=== PATIENT | female | born 1940 | race Caucasian/White ===

== ENCOUNTER 2017-01-14 11:00 | Day surgery (SDC) | payer MEDICARE, OTHER ==
[2017-01-14 10:19] VITALS: RESP 18; TEMP 97.6
[2017-01-14] MEDS ORDERED: LIDOCAINE 2% INJ 20 MG/ML SQ ONE (11:02)
[2017-01-14] MEDS ORDERED: IOHEXOL 350 MG/ML 50ML BOTTLE INJ ONE (11:13)
[2017-01-14 11:58] VITALS: BP 129/83; PULSE 62
--- NOTE | 2017-01-14 13:02 | IR ---
EXAMINATION TYPE: IR cvc insert >=5 years and left upper extremity venogram DATE OF EXAM: 01/14/2017 COMPARISON: NONE CLINICAL HISTORY: Urinary tract infection Needs long-term intravenous access for antibiotics. PROCEDURE: After informed consent, the skin overlying the left brachial vein was localized with ultrasound and n oted to be compressible and patent. An ultrasound image was obtained and submitted on the patient's chart. The overlying skin was prepped and draped and Lidocaine was used for local anesthesia. A ski n nettie was made with a scalpel. Access was gained to the vein under ultrasound guidance with a 21 ga uge needle and a 0.018 inch wire was advanced but could not be advanced centrally. 3 transcatheter ad vanced over the wire, general hand injection of contrast performed, venography in the left axillary r egion was performed. Based on the findings. Dilator was removed and hemostasis achieved by manual com pression. Using similar technique access was gained to the brachial vein more centrally. Access site was dilated with Peel-Away sheath and catheter tailored to the appropriate length and advanced such that the distal tip is at the cavoatrial junction. Spot image was obtained verifying placement. Cat heter was fixed to the skin with suture and a sterile dressing was placed following hemostasis. Cath eter was aspirated and flushed with saline. Patient was discharged in stable condition without compl ication. Maximal barrier technique is utilized. Ultrasound image is documented on the chart. Ultraso und used with sterile technique. FINDINGS: Brachial vein is somewhat diminutive. The basilic vein also diminutive. Second brachial vei n appears more capacious. There is patency centrally. Fluoro time and fluoroscopic images submitted to document procedure: 354 images document the procedur e, 0.2 mins fluoro time. IMPRESSION: STATUS POST ULTRASOUND AND FLUOROSCOPIC GUIDED PICC LINE PLACEMENT, READY FOR USE. THIS PROCEDURE WAS PERFORMED BY THE UNDERSIGNED.
== END 2017-01-14 14:00 | disposition home or self-care (01) ==
LOC: CATHCVL 11:00
PROVIDERS: ATTEND Radiology Diagnostic Radiology
DX: Z45.2 Encounter for adjustment and management of vascular access device (principal); N39.0 Urinary tract infection, site not specified; Z79.2 Long term (current) use of antibiotics
CPT/HCPCS: 36569; 76937; 77001; C1751; C1769; J2001; Q9967